=== PATIENT | female | born 1950 | race Caucasian/White ===

== ENCOUNTER 2024-11-15 11:51 | Day surgery (SDC) | payer MEDICARE ==
[~2024-11-15] VITALS: Ht 154.9 cm; Wt 89.4 kg
[~2024-11-15 11:51] MED LIST: AMLO1TAB24 PO; ATOR1TAB19 PO; CALC600C3 PO; ESOM40CA35 PO; LISI20TA33 PO; LR 1,000 ML IV SCH; SPIR-10 PO; VITA100093 PO
[2024-11-15] MEDS: TETRACAINE 0.5% OPHTH SOLN 4ML OS SCH (14:21)
[2024-11-15] MEDS: PHENYLEPHRINE 2.5% OPHTH SOL 2ML OS SCH (14:21)
[2024-11-15] MEDS: CYCLOPENTOLATE 1% OPHTH SOLN 2ML BTL OS SCH (14:21)
[2024-11-15] MEDS: FLURBIPROFEN 0.03% OPHTH SOLN 2.5 ML OS SCH (14:21)
[2024-11-15] MEDS ORDERED: MIDAZOLAM INJ 2MG/2ML VIAL As Ordered ONE (15:46)
[2024-11-15] MEDS: LIDOCAINE 1% SDV 5ML VIAL As Ordered ONE (15:54)
[2024-11-15] MEDS: CEFUROXIME 1MG/0.1ML INTRACAMERAL INJ As Ordered ONE (15:54)
[2024-11-15 16:37] VITALS: BP 143/78; TEMP 97.2; O2SAT 99
== END 2024-11-15 16:42 | disposition home or self-care (01) ==
LOC: M SDC 11:51
PROVIDERS: ATTEND Ophthalmology
DX: H25.12 Age-related nuclear cataract, left eye (principal); I10 Essential (primary) hypertension; E78.5 Hyperlipidemia, unspecified; K21.9 Gastro-esophageal reflux disease without esophagitis; Z79.899 Other long term (current) drug therapy; Z91.040 Latex allergy status
CPT/HCPCS: 66982; J0697; J2250; V2632